=== PATIENT | male | born 1960 | race Caucasian/White ===

== ENCOUNTER 2024-09-07 11:54 | Outpatient (CLI) | payer MEDICARE, MEDICAID ==
--- NOTE | 2024-09-07 12:55 | RADIOLOGY REPORT ---
CLINICAL INDICATION: LEFT WRIST PAIN TECHNIQUE: 4 radiographic views of the left wrist were obtained. Comparison: None FINDINGS/IMPRESSION: There is no evidence of acute fracture or dislocation. The visualized joint space is well maintained. The alignment is anatomical. There is no radiopaque foreign body.
== END 2024-09-07 23:59 | disposition home or self-care (01) ==
LOC: RAD 11:54
PROVIDERS: ATTEND Family Medicine
DX: M25.532 Pain in left wrist (principal)
CPT/HCPCS: 73110